=== PATIENT | male | born 1975 | race American Indian/Alaskan Native ===

== ENCOUNTER 2020-12-01 22:46 | Inpatient (IN) | payer SELFPAY ==
[2020-12-02 00:59] LABS: Hematocrit 47.9 % (35.5-45.6); Hemoglobin 16.2 gm/dl (11.8-15.2); Mean Corpuscular HGB Conc 34 % (32-34); Mean Corpuscular Volume 95 fl (84-94); Platelet Count 295 K/mm3 (140-440); Red Blood Count 5.06 M/mm3 (3.65-5.03); Red Cell Distribution Width 13.3 % (13.2-15.2)
[2020-12-02 01:25] LABS: Alanine Aminotransferase 30 units/L (7-56); Albumin 4.8 g/dL (3.9-5); BUN/Creatinine Ratio 12; Blood Urea Nitrogen 13 mg/dL (9-20); Calcium 10.3 mg/dL (8.4-10.2); Hemolysis Index 8
[2020-12-02 01:47] LABS: Bilirubin,Urine NEG (Negative); Blood,Urine SM (Negative); Color,Urine Amber (Yellow); Mucus,Urine 3+ /HPF
[2020-12-02 01:50] LABS: Protein,Urine >500 mg/dL (Negative)
[2020-12-02 02:58] LABS: RBC Morphology Normal; Total Cells Counted 100
[2020-12-02] MEDS ORDERED: SODIUM CHLORIDE 0.9% 1000 ML 1,000 ML IV ONE (06:36)
[2020-12-02] MEDS ORDERED: METOCLOPRAMIDE 10 MG/2 ML INJ IV STA (06:36)
[2020-12-02] MEDS ORDERED: diphenhydrAMINE 50 MG/ML VIAL IV STA (06:36)
[2020-12-02] MEDS ORDERED: ONDANSETRON 4 MG/2 ML INJ IV STA (06:36)
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
[2020-12-02] MEDS ORDERED: HYDROmorphone 1 MG/1 ML INJ IV ONE (07:02)
[2020-12-02] MEDS ORDERED: LACTATED RINGERS 1,000 ML IV ONE (07:02)
[2020-12-02 07:50] LABS: INR 1.27 (0.87-1.13)
--- NOTE | 2020-12-02 08:24 | Cat Scan Report ---
CT ABDOMEN AND PELVIS WITH CONTRAST HISTORY: acute abd pain n/v OMNI 1300 100 ML. COMPARISON: None. TECHNIQUE: CT images of the abdomen and pelvis were obtained following administration of intravenous contrast. All CT scans at this location are performed using CT dose reduction for ALARA by means of automated exposure control. CONTRAST: 100 ml of intravenous contrast administered. FINDINGS: Lungs/bones: Lung bases are clear. There are degenerative changes in the spine and pelvis with no ac erna osseous abnormality. Abdomen/pelvis: The small bowel is almost diffusely abnormal with old postoperative change proximall y, several areas of angulation, several fluid-filled dilated loops, and areas of mild inflammatory st randing as well as trace pelvic free fluid. The liver is mildly enlarged with no focal mass. Punctate cholelithiasis is present with no inflammat ory change. The spleen, pancreas, adrenals, kidneys, urinary bladder, and prostate appear unremarkabl e. No pelvic free fluid identified. IMPRESSION: 1. Abnormal appearance of the small bowel consistent with at least partial small bowel obstruction. F indings may be related to adhesive change since there are areas of angulation and previous surgery in the bowel. Otherwise there is mild inflammatory change in the deep pelvis along a segment of ileum. No perforation identified. Signer Name: Kong Nuñez MD Signed: 12/02/2020 8:19 AM Workstation Name: [id number]
--- NOTE | 2020-12-02 08:24 | XRay Report ---
CHEST 1 VIEW INDICATION: epigastric pain n/v. COMPARISON: None FINDINGS: SUPPORT DEVICES: None. HEART: Within normal limits. LUNGS/PLEURA: No acute air space or interstitial disease. ADDITIONAL FINDINGS: None. IMPRESSION: 1. No acute findings. Signer Name: Kong Nuñez MD Signed: 12/02/2020 8:20 AM Workstation Name: [id number]
[2020-12-02] MEDS ORDERED: PIPERACIL/TAZOBACTA 4.5/NS 100 4.5 GM/100 ML VIAL IV ONE (08:45)
[2020-12-02] MEDS ORDERED: MORPHINE 4 MG/1 ML INJ IV ONE (08:45)
[2020-12-02] MEDS ORDERED: LIDOCAINE VISCOUS 2% 15 ML ORAL LIQD MM STA (08:47)
[2020-12-02] MEDS ORDERED: LACTATED RINGERS IV ONE (08:47)
[2020-12-02] MEDS ORDERED: MORPHINE 2 MG/1 ML INJ IV PRN (10:57)
[2020-12-02] MEDS ORDERED: NALOXONE 0.4 MG/1 ML INJ IV PRN (11:30)
[2020-12-02] MEDS ORDERED: ONDANSETRON 4 MG/2 ML INJ IV PRN (11:30)
[2020-12-02] MEDS ORDERED: ACETAMINOPHEN 325 MG TAB PO PRN (12:00)
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
--- NOTE | 2020-12-02 13:42 | XRay Report ---
ABDOMEN 1 VIEW INDICATION / CLINICAL INFORMATION: Check NG position/sbo. COMPARISON: CT from earlier in the day FINDINGS: TUBES / LINES: There is an enteric tube which terminates within the stomach. BOWEL GAS PATTERN: Redemonstrated dilated loops of small bowel throughout the abdomen. FREE AIR / EXTRALUMINAL GAS: None seen. ADDITIONAL FINDINGS: Contrast is noted within the urinary bladder from prior CT IMPRESSION: 1. Redemonstrated findings concerning for small bowel obstruction Signer Name: Gonzalo Pulliam DO Signed: 12/02/2020 1:38 PM Workstation Name: [id number]
[2020-12-02] MEDS: MORPHINE 4 MG/1 ML INJ IV PRN (14:39)
[2020-12-02] MEDS ORDERED: PIPERACILLIN/TAZOBACTAM 3.375 3.375 GM/50 ML BAG IV SCH (16:00)
[2020-12-02] MEDS ORDERED: ALBUTEROL 2.5 MG/3 ML NEBU IH PRN (16:20)
[2020-12-02] MEDS ORDERED: ALBUTEROL 2.5 MG/3 ML NEBU IH SCH (16:30)
[2020-12-02] MEDS: LORazepam 2 MG/ML VIAL IV PRN (17:38)
[2020-12-02] MEDS: PIPERACILLIN/TAZOBACTAM 3.375 3.375 GM/50 ML BAG IV SCH ×2 (17:38→22:32)
[2020-12-02] MEDS: POTASSIUM CHLORIDE 10 MEQ in D5W/0.9% NACL 1,000 ML IV SCH (18:41)
[2020-12-03] MEDS: MORPHINE 4 MG/1 ML INJ IV PRN (05:35)
[2020-12-03] MEDS: POTASSIUM CHLORIDE 10 MEQ in D5W/0.9% NACL 1,000 ML IV SCH (05:41)
[2020-12-03] MEDS: PIPERACILLIN/TAZOBACTAM 3.375 3.375 GM/50 ML BAG IV SCH (05:46)
[2020-12-03 08:28] LABS: Basophils % (Auto) 0.2 % (0.0-1.8); Eosinophils % (Auto) 0.4 % (0.0-4.3); Hemoglobin 14.2 gm/dl (11.8-15.2); Lymphocytes # (Auto) 1.7 K/mm3 (1.2-5.4); Lymphocytes % (Auto) 14.3 % (13.4-35.0); Mean Corpuscular HGB Conc 34 % (32-34); Mean Corpuscular Volume 95 fl (84-94); Monocytes # (Auto) 1.4 K/mm3 (0.0-0.8); Monocytes % (Auto) 11.7 % (0.0-7.3); Platelet Count 244 K/mm3 (140-440); Red Blood Count 4.35 M/mm3 (3.65-5.03); Red Cell Distribution Width 13.4 % (13.2-15.2)
[2020-12-03 08:50] LABS: BUN/Creatinine Ratio 18; Blood Urea Nitrogen 18 mg/dL (9-20); Calcium 9.2 mg/dL (8.4-10.2); Hemolysis Index 0
--- NOTE | 2020-12-03 09:36 | XRay Report ---
ABDOMEN 2 VIEW(S) INDICATION / CLINICAL INFORMATION: Small bowel obstruction. COMPARISON: 12/02/2020 FINDINGS: TUBES / LINES: The tip of the NG tube projects over the proximal stomach. BOWEL GAS PATTERN/EXTRALUMINAL GAS: Stable small bowel distention with multiple air-fluid levels. No pneumatosis or secondary signs of free air. ADDITIONAL FINDINGS: No significant additional findings. IMPRESSION: 1. Stable small bowel distention with air-fluid levels. Signer Name: Kevan Garcia MD Signed: 12/03/2020 9:32 AM Workstation Name: [id number]
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
--- NOTE | 2020-12-03 10:41 | Electrocardiograph Report ---
[facility] Test Date: 2020-12-02 Test Time: 07:16:02 Pat Name: NURA GUERRERO Department: Room: B306 1 Gender: M Pres[employer] Program Director: CLINICAL RESEARCH DIRECTOR : 1975 Requested By: SARATH FERNANDO Order Number: [id number] Reading MD: Nir Bassett Measurements Intervals [place] Rate: 92 P: 83 DC: 170 QRS: 4 QRSD: 96 T: 44 QT: 358 QTc: 443 Interpretive Statements Sinus rhythm No previous ECG available for comparison Electronically Signed On 12-03-2020 10:40:28 EDT by Nir Bassett
[2020-12-03] MEDS: PIPERACIL/TAZOBACTA 4.5/NS 100 4.5 GM/100 ML VIAL IV SCH ×2 (15:23→21:51)
[2020-12-03] MEDS: HYDROmorphone 1 MG/1 ML INJ IV PRN ×2 (15:23→21:24)
--- NOTE | 2020-12-03 15:48 | Progress Note ---
Assessment and Plan - Patient Problems (1) Small bowel obstruction Current Visit: Yes Status: Acute Plan to address problem: 1) Continue NG 2) Ambulate in halls 3) CBC, BMP and AXR in the am Subjective Date of service: 12/03/20 Patient Reports: Positive: no new complaints, feels better, pain is less, no flatus, no bowel movement Objective Vital Signs - 12hr 12/03/20 12/03/20 12/03/20 04:57 05:35 06:05 Temperature 98.7 F Pulse Rate 95 H Respiratory 18 17 17 Rate Blood Pressure 134/88 O2 Sat by Pulse 97 Oximetry 12/03/20 12/03/20 12/03/20 07:02 11:58 15:23 Temperature 98.1 F 97.8 F Pulse Rate 97 H 89 Respiratory 16 16 18 Rate Blood Pressure 141/94 134/85 O2 Sat by Pulse 96 97 Oximetry - Abdomen soft, bowel sounds hypoactive (Less distended and less tender c/w yesterday.) - Labs 12/03/20 07:34 12/03/20 07:34 Diabetes panel 12/03/20 Range/Units 07:34 Sodium 138 (137-145) mmol/L Potassium 3.8 (3.6-5.0) mmol/L Chloride 100.2 (98-107) mmol/L Carbon Dioxide 28 (22-30) mmol/L BUN 18 (9-20) mg/dL Creatinine 1.0 (0.8-1.3) mg/dL Glucose 105 H (75-100) mg/dL Calcium 9.2 (8.4-10.2) mg/dL Calcium panel 12/03/20 Range/Units 07:34 Calcium 9.2 (8.4-10.2) mg/dL Pituitary panel 12/03/20 Range/Units 07:34 Sodium 138 (137-145) mmol/L Potassium 3.8 (3.6-5.0) mmol/L Chloride 100.2 (98-107) mmol/L Carbon Dioxide 28 (22-30) mmol/L BUN 18 (9-20) mg/dL Creatinine 1.0 (0.8-1.3) mg/dL Glucose 105 H (75-100) mg/dL Calcium 9.2 (8.4-10.2) mg/dL Adrenal panel 07/15/21 Range/Units 07:34 Sodium 138 (137-145) mmol/L Potassium 3.8 (3.6-5.0) mmol/L Chloride 100.2 (98-107) mmol/L Carbon Dioxide 28 (22-30) mmol/L BUN 18 (9-20) mg/dL Creatinine 1.0 (0.8-1.3) mg/dL Glucose 105 H (75-100) mg/dL Calcium 9.2 (8.4-10.2) mg/dL - Imaging Abdominal x-ray: report reviewed
[2020-12-03] MEDS: LORazepam 2 MG/ML VIAL IV PRN (21:23)
[2020-12-04] MEDS: MORPHINE 4 MG/1 ML INJ IV PRN ×4 (04:40→21:44)
[2020-12-04] MEDS: PIPERACIL/TAZOBACTA 4.5/NS 100 4.5 GM/100 ML VIAL IV SCH ×3 (05:01→21:42)
[2020-12-04 05:47] LABS: Basophils % (Auto) 0.3 % (0.0-1.8); Eosinophils # (Auto) 0.2 K/mm3 (0.0-0.4); Eosinophils % (Auto) 1.5 % (0.0-4.3); Hematocrit 39.8 % (35.5-45.6); Hemoglobin 13.3 gm/dl (11.8-15.2); Lymphocytes # (Auto) 2.1 K/mm3 (1.2-5.4); Lymphocytes % (Auto) 16.9 % (13.4-35.0); Mean Corpuscular HGB Conc 34 % (32-34); Mean Corpuscular Volume 96 fl (84-94); Monocytes # (Auto) 1.9 K/mm3 (0.0-0.8); Monocytes % (Auto) 15.2 % (0.0-7.3); Platelet Count 267 K/mm3 (140-440); Red Blood Count 4.17 M/mm3 (3.65-5.03); Red Cell Distribution Width 13.3 % (13.2-15.2)
[2020-12-04 06:06] LABS: BUN/Creatinine Ratio 20; Blood Urea Nitrogen 20 mg/dL (9-20); Hemolysis Index 0
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
--- NOTE | 2020-12-04 11:20 | XRay Report ---
ABDOMEN 3 VIEW(S) INDICATION / CLINICAL INFORMATION: sbo. COMPARISON: None available. FINDINGS: TUBES / LINES: None. BOWEL GAS PATTERN: There are several distended loops of bowel which appears represent small bowel wit hin the abdomen with several small fluid levels. FREE AIR / EXTRALUMINAL GAS: None seen. ADDITIONAL FINDINGS: No significant additional findings. CHEST: Visualized chest shows no significant abnormality. IMPRESSION: 1. Distended/dilated loops of small bowel in the mid abdomen with several small fluid levels. There i s constipation right colon. Findings could represent ileus however early small bowel obstruction coul d have this appearance. Signer Name: Slick Mendoza MD Signed: 12/04/2020 11:15 AM Workstation Name: [id number]
[2020-12-04] MEDS: POTASSIUM CHLORIDE 10 MEQ in D5W/0.9% NACL 1,000 ML IV SCH (12:36)
--- NOTE | 2020-12-04 19:55 | Progress Note ---
Assessment and Plan - Patient Problems (1) Small bowel obstruction Current Visit: Yes Status: Acute Plan to address problem: 1) AXR, CBC and BMP in the am. Told pt that if he doesn't pass flatus or AXR are not improved, we will need to proceed with JERONIMO. Subjective Date of service: 12/04/20 Patient Reports: Positive: no new complaints, feels better, pain is less, no flatus, no bowel movement Objective Vital Signs - 12hr 12/04/20 12/04/20 12/04/20 08:00 10:52 11:00 Temperature 98 F 98.4 F Pulse Rate 83 84 Respiratory 20 20 20 Rate Blood Pressure Blood Pressure 121/76 119/78 [Right] O2 Sat by Pulse 99 98 Oximetry 12/04/20 18:53 Temperature 99.3 F Pulse Rate 78 Respiratory 16 Rate Blood Pressure 122/72 Blood Pressure [Right] O2 Sat by Pulse 96 Oximetry - Abdomen soft, bowel sounds hypoactive (Mildly distended with very mild diffuse tenderne ss.) - Labs 12/04/20 04:48 12/04/20 04:48 Diabetes panel 12/04/20 Range/Units 04:48 Sodium 141 (137-145) mmol/L Potassium 3.9 (3.6-5.0) mmol/L Chloride 101.0 (98-107) mmol/L Carbon Dioxide 29 (22-30) mmol/L BUN 20 (9-20) mg/dL Creatinine 1.0 (0.8-1.3) mg/dL Glucose 87 (75-100) mg/dL Calcium 9.0 (8.4-10.2) mg/dL Calcium panel 12/04/20 Range/Units 04:48 Calcium 9.0 (8.4-10.2) mg/dL Pituitary panel 12/04/20 Range/Units 04:48 Sodium 141 (137-145) mmol/L Potassium 3.9 (3.6-5.0) mmol/L Chloride 101.0 (98-107) mmol/L Carbon Dioxide 29 (22-30) mmol/L BUN 20 (9-20) mg/dL Creatinine 1.0 (0.8-1.3) mg/dL Glucose 87 (75-100) mg/dL Calcium 9.0 (8.4-10.2) mg/dL Adrenal panel 12/04/20 Range/Units 04:48 Sodium 141 (137-145) mmol/L Potassium 3.9 (3.6-5.0) mmol/L Chloride 101.0 (98-107) mmol/L Carbon Dioxide 29 (22-30) mmol/L BUN 20 (9-20) mg/dL Creatinine 1.0 (0.8-1.3) mg/dL Glucose 87 (75-100) mg/dL Calcium 9.0 (8.4-10.2) mg/dL - Imaging Abdominal x-ray: report reviewed
[2020-12-05] MEDS: HYDROmorphone 1 MG/1 ML INJ IV PRN (03:40)
[2020-12-05] MEDS: POTASSIUM CHLORIDE 10 MEQ in D5W/0.9% NACL 1,000 ML IV SCH (03:44)
[2020-12-05] MEDS: PIPERACIL/TAZOBACTA 4.5/NS 100 4.5 GM/100 ML VIAL IV SCH ×3 (05:17→21:49)
[2020-12-05 05:35] LABS: Basophils % (Auto) 0.3 % (0.0-1.8); Eosinophils # (Auto) 0.3 K/mm3 (0.0-0.4); Eosinophils % (Auto) 2.4 % (0.0-4.3); Hematocrit 38.2 % (35.5-45.6); Hemoglobin 13.1 gm/dl (11.8-15.2); Lymphocytes # (Auto) 1.9 K/mm3 (1.2-5.4); Lymphocytes % (Auto) 16.2 % (13.4-35.0); Mean Corpuscular HGB Conc 34 % (32-34); Mean Corpuscular Volume 96 fl (84-94); Monocytes # (Auto) 1.9 K/mm3 (0.0-0.8); Platelet Count 274 K/mm3 (140-440); Red Cell Distribution Width 13.2 % (13.2-15.2)
[2020-12-05 05:48] LABS: BUN/Creatinine Ratio 21; Blood Urea Nitrogen 19 mg/dL (9-20); Calcium 9.2 mg/dL (8.4-10.2); Hemolysis Index 4
--- NOTE | 2020-12-05 08:31 | XRay Report ---
Abdomen 2 views INDICATION: Abdominal pain IMPRESSION: Several dilated loops of small bowel within the left mid abdomen are unchanged from 2020 concerning for persistent small bowel obstruction. The esophagogastric tube terminates within th e upper aspect of the stomach. Signer Name: Hai Cavazos MD Signed: 12/05/2020 8:26 AM Workstation Name: [id number]
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
[2020-12-05] MEDS: MORPHINE 4 MG/1 ML INJ IV PRN ×3 (09:03→21:54)
--- NOTE | 2020-12-05 10:41 | Progress Note ---
Assessment and Plan - Patient Problems (1) Small bowel obstruction Current Visit: Yes Status: Acute Plan to address problem: 1) Pt does not want to proceed with surgery since he is passing flatus and feeling much better. Well repeat AXR tomorrow. He is aware that surgery may still be necessary. Subjective Date of service: 12/05/20 Patient Reports: Positive: no new complaints, feels better, pain is less, flatus, no bowel movement Objective Vital Signs - 12hr 12/04/20 12/05/20 12/05/20 23:41 05:17 05:26 Temperature 98.6 F 98.0 F 98.4 F Pulse Rate 83 72 76 Respiratory 18 18 18 Rate Blood Pressure 119/75 130/80 Blood Pressure 133/82 [Right] O2 Sat by Pulse 96 98 98 Oximetry 12/05/20 07:05 Temperature 98.7 F Pulse Rate 63 Respiratory 18 Rate Blood Pressure 122/77 Blood Pressure [Right] O2 Sat by Pulse 97 Oximetry - Abdomen soft, bowel sounds hypoactive (Soft, minimally distened, NT) - Labs 12/05/20 05:01 12/05/20 05:01 Diabetes panel 12/05/20 Range/Units 05:01 Sodium 139 (137-145) mmol/L Potassium 3.6 (3.6-5.0) mmol/L Chloride 101.1 (98-107) mmol/L Carbon Dioxide 27 (22-30) mmol/L BUN 19 (9-20) mg/dL Creatinine 0.9 (0.8-1.3) mg/dL Glucose 84 (75-100) mg/dL Calcium 9.2 (8.4-10.2) mg/dL Calcium panel 12/05/20 Range/Units 05:01 Calcium 9.2 (8.4-10.2) mg/dL Pituitary panel 12/05/20 Range/Units 05:01 Sodium 139 (137-145) mmol/L Potassium 3.6 (3.6-5.0) mmol/L Chloride 101.1 (98-107) mmol/L Carbon Dioxide 27 (22-30) mmol/L BUN 19 (9-20) mg/dL Creatinine 0.9 (0.8-1.3) mg/dL Glucose 84 (75-100) mg/dL Calcium 9.2 (8.4-10.2) mg/dL Adrenal panel 12/05/20 Range/Units 05:01 Sodium 139 (137-145) mmol/L Potassium 3.6 (3.6-5.0) mmol/L Chloride 101.1 (98-107) mmol/L Carbon Dioxide 27 (22-30) mmol/L BUN 19 (9-20) mg/dL Creatinine 0.9 (0.8-1.3) mg/dL Glucose 84 (75-100) mg/dL Calcium 9.2 (8.4-10.2) mg/dL - Imaging Abdominal x-ray: report reviewed
[2020-12-05] MEDS ORDERED: PHENOL 1.4% 177 ML BOTTLE MM PRN (16:18)
[2020-12-05] MEDS ORDERED: PANTOPRAZOLE 40 MG INJ IV SCH (17:00)
[2020-12-06] MEDS: LORazepam 2 MG/ML VIAL IV PRN (04:23)
[2020-12-06 04:54] LABS: BUN/Creatinine Ratio 21; Blood Urea Nitrogen 19 mg/dL (9-20); Calcium 8.8 mg/dL (8.4-10.2); Hemolysis Index 4
[2020-12-06 04:57] LABS: Basophils # (Auto) 0.1 K/mm3 (0.0-0.1); Basophils % (Auto) 0.6 % (0.0-1.8); Eosinophils # (Auto) 0.2 K/mm3 (0.0-0.4); Hematocrit 37.6 % (35.5-45.6); Hemoglobin 12.9 gm/dl (11.8-15.2); Lymphocytes # (Auto) 2.3 K/mm3 (1.2-5.4); Lymphocytes % (Auto) 19.4 % (13.4-35.0); Mean Corpuscular HGB Conc 34 % (32-34); Mean Corpuscular Volume 96 fl (84-94); Monocytes # (Auto) 1.8 K/mm3 (0.0-0.8); Monocytes % (Auto) 15.4 % (0.0-7.3); Platelet Count 285 K/mm3 (140-440); Red Blood Count 3.92 M/mm3 (3.65-5.03); Red Cell Distribution Width 13.4 % (13.2-15.2)
[2020-12-06] MEDS: PIPERACIL/TAZOBACTA 4.5/NS 100 4.5 GM/100 ML VIAL IV SCH (06:16)
[2020-12-06] MEDS: POTASSIUM CHLORIDE 10 MEQ in D5W/0.9% NACL 1,000 ML IV SCH (06:21)
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
--- NOTE | 2020-12-06 09:45 | XRay Report ---
. ABDOMEN 2 VIEW(S) INDICATION / CLINICAL INFORMATION: Small bowel obstruction. COMPARISON: 12/05/2020 FINDINGS: TUBES / LINES: NG tube tip projects over the stomach. BOWEL GAS PATTERN/EXTRALUMINAL GAS: Stable mild small bowel distention. No pneumatosis or secondary s igns of free air. ADDITIONAL FINDINGS: No significant additional findings. IMPRESSION: 1. Unchanged mild small bowel distention. Signer Name: Kevan Garcia MD Signed: 12/06/2020 9:41 AM Workstation Name: [email or web address]
[2020-12-06 11:19] VITALS: BP 117/63
--- NOTE | 2020-12-06 11:28 | Progress Note ---
Assessment and Plan - Patient Problems (1) Small bowel obstruction Current Visit: Yes Status: Acute Plan to address problem: 1) Appears to be slowly improving 2) Continue NG and IVF 3) CBC, BMP and AXR in the am Subjective Date of service: 12/06/20 Patient Reports: Positive: no new complaints, feels better, flatus, bowel movement Objective Vital Signs - 12hr 12/05/20 12/06/20 12/06/20 23:44 06:24 07:00 Temperature 98.6 F 98.4 F 98.5 F Pulse Rate 72 60 80 Respiratory 18 18 18 Rate Blood Pressure 140/89 120/78 151/88 O2 Sat by Pulse 96 96 96 Oximetry 12/06/20 11:12 Temperature 98.5 F Pulse Rate 53 L Respiratory 16 Rate Blood Pressure 117/63 O2 Sat by Pulse 97 Oximetry - Abdomen soft, bowel sounds normal (NT, ND) - Labs 12/06/20 04:05 12/06/20 04:05 Diabetes panel 12/06/20 Range/Units 04:05 Sodium 138 (137-145) mmol/L Potassium 3.6 (3.6-5.0) mmol/L Chloride 104.3 (98-107) mmol/L Carbon Dioxide 25 (22-30) mmol/L BUN 19 (9-20) mg/dL Creatinine 0.9 (0.8-1.3) mg/dL Glucose 87 (75-100) mg/dL Calcium 8.8 (8.4-10.2) mg/dL Calcium panel 12/06/20 Range/Units 04:05 Calcium 8.8 (8.4-10.2) mg/dL Pituitary panel 12/06/20 Range/Units 04:05 Sodium 138 (137-145) mmol/L Potassium 3.6 (3.6-5.0) mmol/L Chloride 104.3 (98-107) mmol/L Carbon Dioxide 25 (22-30) mmol/L BUN 19 (9-20) mg/dL Creatinine 0.9 (0.8-1.3) mg/dL Glucose 87 (75-100) mg/dL Calcium 8.8 (8.4-10.2) mg/dL Adrenal panel 12/06/20 Range/Units 04:05 Sodium 138 (137-145) mmol/L Potassium 3.6 (3.6-5.0) mmol/L Chloride 104.3 (98-107) mmol/L Carbon Dioxide 25 (22-30) mmol/L BUN 19 (9-20) mg/dL Creatinine 0.9 (0.8-1.3) mg/dL Glucose 87 (75-100) mg/dL Calcium 8.8 (8.4-10.2) mg/dL - Imaging Abdominal x-ray: report reviewed, image reviewed
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
== END 2020-12-06 14:00 | disposition left against medical advice (07) | DRG 872 ==
LOC: ED 22:46 → 3B 12-02 08:54 → OBSVTOIN 12-02 10:57
PROVIDERS: ADMIT Family Medicine; ATTEND Family Medicine
PROC: 0D9670Z Drainage of Stomach with Drainage Device, Via Natural or Artificial Opening (ICD-10-PCS; principal; 2020-12-02)
DX: A41.9 Sepsis, unspecified organism (principal); K56.609 Unspecified intestinal obstruction, unspecified as to partial versus complete obstruction; N39.0 Urinary tract infection, site not specified; J45.909 Unspecified asthma, uncomplicated; F17.210 Nicotine dependence, cigarettes, uncomplicated; J45.20 Mild intermittent asthma, uncomplicated; Z53.29 Procedure and treatment not carried out because of patient's decision for other reasons
CPT/HCPCS: 36415; 71045; 74018; 74019; 74177; 80048; 80053; 81001; 82140; 82550; 83735; 84484; 85007; 85025; 85027; 85610; 87040; 87086; 93005; 94640; 96365; 96375; G0378; C9113; J1170; J1200; J2060; J2270; J2405; J2543; J2765; J3480; J7030; J7042; J7120; Q9967